=== PATIENT | female | born 1950 | race Caucasian/White ===

== ENCOUNTER 2017-10-04 10:14 | Emergency (ER) | payer MEDICARE ==
[2017-10-04 10:29] VITALS: RESP 18
--- NOTE | 2017-10-04 10:39 | ED ---
Fall HPI - General Chief Complaint: Fall Stated Complaint: Fell knee/leg injury Time Seen by Provider: 10/04/17 10:30 Source: patient Mode of arrival: ambulatory - History of Present Illness Initial Comments: 67-year-old female history of rheumatoid arthritis who states she fell coming out of her RV this morning. She landed on her knees she complains now of right knee pain and left ankle pain. No head neck or back pain no other extremity injury. He states initially her left knee hurts somewhat but now it does not hurt at all. She also states she has a bruise to the left anterior lateral ankle she has a prior history of fractured left ankle which was 5 years old she states no other modifying factors at this time MD Complaint: fall - Related Data Allergies Allergy/AdvReac Type Severity Reaction Status Date / Time acetaminophen [From Tylenol] Allergy Unknown Verified 10/04/17 10:29 Review of Systems ROS Statement: Those systems with pertinent positive or pertinent negative responses have been documented in the HPI. ROS Other: All systems not noted in ROS Statement are negative. Past Medical History Past Medical History: Hypertension, Rheumatoid Arthritis (RA), Thyroid Disorder Additional Past Medical History / Comment(s): brain aneurism with coil, graves disease History of Any Multi-Drug Resistant Organisms: None Reported Past Surgical History: Appendectomy, Bowel Resection, Tonsillectomy, Tubal Ligation Additional Past Surgical History / Comment(s): brain coil, "ovaries frozen", cataract Past Psychological History: No Psychological Hx Reported Smoking Status: Former smoker Past Alcohol Use History: None Reported Past Drug Use History: None Reported General Exam - General Exam Comments Initial Comments: This is a well-developed well-nourished awake alert oriented 3 female Limitations: no limitations General appearance: alert, in no apparent distress Head exam: Present: atraumatic, normocephalic, normal inspection Eye exam: Present: normal appearance, PERRL. Absent: scleral icterus, conjunctival injection, periorbital swelling ENT exam: Present: normal exam, mucous membranes moist Neck exam: Present: normal inspection, full ROM. Absent: tenderness, meningismus, lymphadenopathy Respiratory exam: Absent: respiratory distress, wheezes, rales, rhonchi, stridor , chest wall tenderness Cardiovascular Exam: Present: regular rate, normal rhythm. Absent: systolic murmur, diastolic murmur, rubs, gallop, clicks GI/Abdominal exam: Absent: distended, tenderness, guarding, rebound, rigid Extremities exam: Present: full ROM, tenderness (Tenderness palpation of the medial and lateral aspects of the right knee no patellar ballottement no pain distal or proximal to this is also left ankle tenderness over neck symmetric. To the anterior lateral ankle no step-off or crepitation), normal capillary refill. Absent: pedal edema, joint swelling, calf tenderness Back exam: Present: full ROM. Absent: tenderness, CVA tenderness (R), CVA tenderness (L), muscle spasm, paraspinal tenderness, vertebral tenderness Neurological exam: Present: alert, oriented X3, CN II-XII intact Psychiatric exam: Present: normal affect, normal mood Skin exam: Present: warm, dry, intact, normal color. Absent: rash Course Vital Signs 10/04/17 10:22 Temperature 98.6 F Pulse Rate 80 Respiratory 18 Rate Blood Pressure 170/78 O2 Sat by Pulse 97 Oximetry Medical Decision Making - Medical Decision Making I did discuss the findings with the patient and her . Patient will receive an injection of Toradol and be discharged she does have other adequate pain medication at home for her rheumatoid arthritis. She will be directed to use ice for next 24-48 hours. She does states she started been doing that. - Radiology Data Radiology results: report reviewed (I did review the imaging and reports no evidence of acute fractures or dislocations.), image reviewed Disposition Clinical Impression: Fall, Contusion of right knee, Left ankle sprain Disposition: HOME SELF-CARE Condition: Good Instructions: Contusion in Adults (ED), Fall Prevention for Older Adults (ED) Additional Instructions: It is okay to use your home pain medication Is patient prescribed a controlled substance at d/c from ED?: No Referrals: None,Stated [Primary Care Provider] - 1-2 days
--- NOTE | 2017-10-04 11:12 | XR ---
EXAMINATION TYPE: XR ankle complete LT DATE OF EXAM: 10/04/2017 COMPARISON: NONE HISTORY: Pain TECHNIQUE: 3 views of the left ankle are submitted for evaluation. FINDINGS: There is no evidence for fracture or dislocation. Ankle mortise is intact. Soft tissues are within normal limits. IMPRESSION: 1. No evidence for acute fracture.
--- NOTE | 2017-10-04 11:13 | XR ---
EXAMINATION TYPE: XR foot complete RT DATE OF EXAM: 10/04/2017 CLINICAL HISTORY: pain TECHNIQUE: Frontal, lateral and oblique images of the right foot are obtained. COMPARISON: None. FINDINGS: There is no acute fracture/dislocation evident. The joint spaces appear within normal munoz its. The overlying soft tissue appears unremarkable. IMPRESSION: There is no acute fracture or dislocation. ICD 10 NO FRACTURE, INITIAL EVALUATION
--- NOTE | 2017-10-04 11:14 | XR ---
EXAMINATION TYPE: XR knee 4V RT DATE OF EXAM: 10/04/2017 CLINICAL HISTORY: pain TECHNIQUE: Three views of the right knee are obtained. Patellar sunrise view also obtained. COMPARISON: None. FINDINGS: There is no acute fracture/dislocation. The tri-compartment joint spaces appear moderatel y narrowed at the medial tibiofemoral joint space. The overlying soft tissue appears unremarkable. IMPRESSION: There is no acute fracture or dislocation.ICD 10 NO FRACTURE, INITIAL EVALUATION
[2017-10-04] MEDS ORDERED: KETOROLAC 60 MG/2 ML VIAL IM STA (11:34)
[2017-10-04 11:43] VITALS: BP 159/77; PULSE 73; TEMP 97
== END 2017-10-04 11:46 | disposition home or self-care (01) ==
LOC: EC 10:14
DX: S93.402A Sprain of unspecified ligament of left ankle, initial encounter (principal); S80.01XA Contusion of right knee, initial encounter; M06.9 Rheumatoid arthritis, unspecified; Z87.891 Personal history of nicotine dependence; Z88.6 Allergy status to analgesic agent; W10.9XXA Fall (on) (from) unspecified stairs and steps, initial encounter; Y92.89 Other specified places as the place of occurrence of the external cause
CPT/HCPCS: 73564; 73610; 73630; 99283; 96372; J1885